=== PATIENT | female | born 1965 | race Caucasian/White ===

== ENCOUNTER 2017-07-17 18:22 | Inpatient (IN) | payer SELFPAY ==
[2017-07-17 18:44] VITALS: BP 149/83; PULSE 127; RESP 19; TEMP 37; O2SAT 99; BMI 37.5
--- NOTE | 2017-07-17 18:50 | ED.ABDPAIN ---
HPI - Abdominal Pain <Trena Lott PA-C - Last Filed: 07/17/17 22:22> General Chief Complaint: Abdominal Pain Stated Complaint: ACUTE SOMETHING WITH GALLBLADDER Time Seen by Provider: 07/17/17 18:48 Source: patient Mode of arrival: ambulatory Limitations: no limitations History of Present Illness HPI narrative: This generally healthy 51-year-old female was sent by [facility] secondary to gallstones. She states that she has had worsening right upper quadrant and flank pain for the last 5 days. She states that she thinks maybe it was present prior to that at a lower level. She states that she was initially diagnosed with/a kidney infection and started on Levaquin, however after not improving an ultrasound was done today and multiple stones and possible obstruction were shown as well. She states that she thinks there may have been some intestinal issue going on as well. She states that the right-sided pain is worse after trying to eat anything and she has had nausea and vomiting as well after trying to eat. She states that she has not had anything to eat or drink since 01/05 this morning mainly due to not being able to keep it down though she feels somewhat hungry. She states that she has felt clammy at times and has had some temperatures in the 99 range. She denies any urinary symptoms. She denies any pain elsewhere in the abdomen. She has not had blood in the stools, dyspnea, chest pain, pain or swelling in the extremities or other new complaints on systems review Related Data Allergies Allergy/AdvReac Type Severity Reaction Status Date / Time Penicillins Allergy Verified 07/17/17 21:49 Sulfa (Sulfonamide Allergy Verified 07/17/17 21:49 Antibiotics) Review of Systems <Trena Lott PA-C - Last Filed: 07/17/17 22:22> Review of Systems All systems reviewed & are unremarkable except as noted in HPI and below Exam <Trena Lott PA-C - Last Filed: 07/17/17 22:22> Narrative Exam Narrative: GENERAL APPEARANCE: Patient sitting comfortably, in no distress. HEENT: PERRL, EOMI, no scleral icterus NECK: Supple LUNGS: Clear to auscultation bilaterally. HEART: Rate and rhythm regular, normal S1 and S2, no S3 or S4. ABDOMEN: Soft, nondistended, bowel sounds present x 4 quadrants, no masses palpable, no hepatosplenomegaly. Right lower quadrant tenderness with +rebound, +Jon sign, moderate right CVAT. No tenderness elsewhere EXTREMITIES: No edema, no cyanosis DERMATOLOGIC: No jaundice or exanthem NEUROLOGIC: Alert and oriented with normal speech and coordination MDM - Abdominal Pain <Trena Lott PA-C - Last Filed: 07/17/17 22:22> Lab Data Attestation: I reviewed the patient's lab results. Result diagrams: 07/17/17 19:19 07/17/17 19:19 Lab Results 07/17/17 07/17/17 07/17/17 Range/Units 19:19 19:19 19:55 WBC 11.3 H (4.5-11.0) X10^3/uL RBC 4.96 (4.0-5.2) X10^6/uL Hgb 14.2 (12.0-16.0) g/dL Hct 41.2 (36-46) % MCV 83.1 (80-100) fL MCH 28.6 (26-34) PG MCHC 34.5 (30-36) % RDW 13.3 (11.6-14.8) % Plt Count 321 (150-400) X10^3/uL Neut % (Auto) 78.1 H (50-75) % Lymph % (Auto) 12.5 L (25-40) % [place] % (Auto) 8.4 (3-14) % Eos % (Auto) 0.5 L (2-4) % Baso % (Auto) 0.5 (0-2) % Neut # (Auto) 8800 H (8430-1970) /uL PT 14.0 H (10.1-12.7) SECONDS INR 1.3 (0.9-1.3) APTT 34 (26.4-36.2) SECONDS Sodium 139 (137-145) mmol/L Potassium 3.3 L (3.4-5.1) mmol/L Chloride 97.0 L (98-107) mmol/L Carbon Dioxide 27.0 (22-32) mmol/L BUN 12.0 (7-17) mg/dL Creatinine 0.70 (0.52-1.04) mg/dL Estimated GFR > 60.0 (>60) mL/min BUN/Creatinine Ratio 17.1 (6-22) Glucose 125 H (70-100) mg/dL Calcium 9.3 (8.4-10.2) mg/dL Total Bilirubin 0.7 (0.2-1.3) mg/dL AST 30 (14-36) IU/L ALT 68 H (9-52) IU/L Alkaline Phosphatase 123 (38-126) U/L Total Protein 8.1 (6.3-8.2) g/dL Albumin 4.3 (3.5-5.0) g/dL Globulin 3.8 (1.7-4.1) g/dL Albumin/Globulin Ratio 1.1 (1.0-2.8) Lipase 51 (23-300) U/L Urine RBC (0-5/HPF) Urine WBC (0-5/HPF) Ur Squamous Epith Cells Urine Bacteria (None) Urine Mucus (Negative) Ur Culture Indicated? Micro UA Comment 07/17/17 Range/Units 19:59 WBC (4.5-11.0) X10^3/uL RBC (4.0-5.2) X10^6/uL Hgb (12.0-16.0) g/dL Hct (36-46) % MCV (80-100) fL MCH (26-34) PG MCHC (30-36) % RDW (11.6-14.8) % Plt Count (150-400) X10^3/uL Neut % (Auto) (50-75) % Lymph % (Auto) (25-40) % [place] % (Auto) (3-14) % Eos % (Auto) (2-4) % Baso % (Auto) (0-2) % Neut # (Auto) (1168-9692) /uL PT (10.1-12.7) SECONDS INR (0.9-1.3) APTT (26.4-36.2) SECONDS Sodium (137-145) mmol/L Potassium (3.4-5.1) mmol/L Chloride (98-107) mmol/L Carbon Dioxide (22-32) mmol/L BUN (7-17) mg/dL Creatinine (0.52-1.04) mg/dL Estimated GFR (>60) mL/min BUN/Creatinine Ratio (6-22) Glucose (70-100) mg/dL Calcium (8.4-10.2) mg/dL Total Bilirubin (0.2-1.3) mg/dL AST (14-36) IU/L ALT (9-52) IU/L Alkaline Phosphatase (38-126) U/L Total Protein (6.3-8.2) g/dL Albumin (3.5-5.0) g/dL Globulin (1.7-4.1) g/dL Albumin/Globulin Ratio (1.0-2.8) Lipase (23-300) U/L Urine RBC 5-10/hpf H (0-5/HPF) Urine WBC 1-5/hpf (0-5/HPF) Ur Squamous Epith Cells 0-1 /hpf Urine Bacteria Few (2-10) H (None) Urine Mucus 2+ H (Negative) Ur Culture Indicated? Not Reportable Micro UA Comment Not Reportable Imaging Data CT scan - abdomen: Radiologist's impression: View Report History [address] [address] [address] Scan Report Signed Patient: KEKE JANG MR#: [id number] : 1965 Acct:[id number] Age/Sex: 51 / F Date of Service: 07/17/17 Loc: Accession Number: [id number] Procedure: CT abdomen pelvis w con Ordering Provider: Trena Lott P.A-C PROCEDURE: CT ABDOMEN PELVIS W CON INDICATIONS: 51 year-old female with gallstones and right upper quadrant abdominal pain. TECHNIQUE: After the administration of oral and intravenous contrast, 5 mm thick sections acquired from the diaphragms to the symphysis. 5 mm thick coronal and sagittal reformats were performed. For radiation dose reduction, the following was used: automated exposure control, adjustment of mA and/or kV according to patient size. COMPARISON: None. FINDINGS: Image quality: Excellent. ABDOMEN: Lung bases: Lung bases are clear, except for patchy bibasilar atelectasis. Heart size is normal. Solid organs: Liver is normal in size and enhancement, with mild intrahepatic biliary ductal dilation. Gallbladder contains several dependent noncalcified gallstones, and is distended up to 14.5 x 4.5 cm, along with diffuse wall thickening and mild pericholecystic inflammatory fat stranding. Biliary system is non-dilated. Pancreas enhances normally. Spleen is normal in size, with 2.2 cm lateral subcapsular cyst. No adrenal nodules. Kidneys are normal in size and enhancement, without hydronephrosis. Peritoneum and bowel: Stomach, small bowel, and colon loops are normal in caliber and wall thickness. The appendix appears normal. No free fluid or air. Nodes and vessels: No retroperitoneal or mesenteric adenopathy. Aorta and inferior vena cava are normal in caliber. Miscellaneous: No ventral hernias. PELVIS: Genitourinary: Bladder wall thickness is normal. Uterus and left ovary appears surgically absent. The right ovary appears normal in size on axial image 75. Miscellaneous: No inguinal hernias or adenopathy. Bilateral inguinal surgical clips are present. Bones: No suspicious bony lesions. No vertebral body compression fractures. There is mild lumbar spine levoscoliosis, and lower thoracic spine dextroscoliosis. IMPRESSION: 1. Constellation of findings indicate acute cholecystitis, including gallbladder distention from outlet obstruction, diffuse gallbladder wall thickening, several dependent noncalcified gallstones, and pericholecystic inflammatory fat stranding. As such, confirmatory abdominal ultrasound is not needed. Mild intrahepatic biliary ductal dilation may suggest concomitant Mirizzi syndrome from extrinsic compression of the proximal extrahepatic biliary duct. 2. Incidental 2.2 cm lateral splenic subcapsular cyst. Dictated by: Will Mendoza M.D. on 07/17/2017 at 20:39 Approved by: Will Mendoza M.D. on 07/17/2017 at 20:49 <Rubens Sanchez DO - Last Filed: 07/17/17 22:48> Lab Data Lab Results 07/17/17 07/17/17 07/17/17 Range/Units 19:19 19:19 19:55 WBC 11.3 H (4.5-11.0) X10^3/uL RBC 4.96 (4.0-5.2) X10^6/uL Hgb 14.2 (12.0-16.0) g/dL Hct 41.2 (36-46) % MCV 83.1 (80-100) fL MCH 28.6 (26-34) PG MCHC 34.5 (30-36) % RDW 13.3 (11.6-14.8) % Plt Count 321 (150-400) X10^3/uL Neut % (Auto) 78.1 H (50-75) % Lymph % (Auto) 12.5 L (25-40) % [place] % (Auto) 8.4 (3-14) % Eos % (Auto) 0.5 L (2-4) % Baso % (Auto) 0.5 (0-2) % Neut # (Auto) 8800 H (2267-1470) /uL PT 14.0 H (10.1-12.7) SECONDS INR 1.3 (0.9-1.3) APTT 34 (26.4-36.2) SECONDS Sodium 139 (137-145) mmol/L Potassium 3.3 L (3.4-5.1) mmol/L Chloride 97.0 L (98-107) mmol/L Carbon Dioxide 27.0 (22-32) mmol/L BUN 12.0 (7-17) mg/dL Creatinine 0.70 (0.52-1.04) mg/dL Estimated GFR > 60.0 (>60) mL/min BUN/Creatinine Ratio 17.1 (6-22) Glucose 125 H (70-100) mg/dL Calcium 9.3 (8.4-10.2) mg/dL Total Bilirubin 0.7 (0.2-1.3) mg/dL AST 30 (14-36) IU/L ALT 68 H (9-52) IU/L Alkaline Phosphatase 123 (38-126) U/L Total Protein 8.1 (6.3-8.2) g/dL Albumin 4.3 (3.5-5.0) g/dL Globulin 3.8 (1.7-4.1) g/dL Albumin/Globulin Ratio 1.1 (1.0-2.8) Lipase 51 (23-300) U/L Urine RBC (0-5/HPF) Urine WBC (0-5/HPF) Ur Squamous Epith Cells Urine Bacteria (None) Urine Mucus (Negative) Ur Culture Indicated? Micro UA Comment 07/17/17 Range/Units 19:59 WBC (4.5-11.0) X10^3/uL RBC (4.0-5.2) X10^6/uL Hgb (12.0-16.0) g/dL Hct (36-46) % MCV (80-100) fL MCH (26-34) PG MCHC (30-36) % RDW (11.6-14.8) % Plt Count (150-400) X10^3/uL Neut % (Auto) (50-75) % Lymph % (Auto) (25-40) % [place] % (Auto) (3-14) % Eos % (Auto) (2-4) % Baso % (Auto) (0-2) % Neut # (Auto) (2175-9607) /uL PT (10.1-12.7) SECONDS INR (0.9-1.3) APTT (26.4-36.2) SECONDS Sodium (137-145) mmol/L Potassium (3.4-5.1) mmol/L Chloride (98-107) mmol/L Carbon Dioxide (22-32) mmol/L BUN (7-17) mg/dL Creatinine (0.52-1.04) mg/dL Estimated GFR (>60) mL/min BUN/Creatinine Ratio (6-22) Glucose (70-100) mg/dL Calcium (8.4-10.2) mg/dL Total Bilirubin (0.2-1.3) mg/dL AST (14-36) IU/L ALT (9-52) IU/L Alkaline Phosphatase (38-126) U/L Total Protein (6.3-8.2) g/dL Albumin (3.5-5.0) g/dL Globulin (1.7-4.1) g/dL Albumin/Globulin Ratio (1.0-2.8) Lipase (23-300) U/L Urine RBC 5-10/hpf H (0-5/HPF) Urine WBC 1-5/hpf (0-5/HPF) Ur Squamous Epith Cells 0-1 /hpf Urine Bacteria Few (2-10) H (None) Urine Mucus 2+ H (Negative) Ur Culture Indicated? Not Reportable Micro UA Comment Not Reportable Course <Trena Lott PA-C - Last Filed: 07/17/17 22:22> Hospital Course: Patient reported that ultrasound films had been sent here from [facility], however our radiology department has no record of these being uploaded or received. In discussion and evaluation I think clinical condition warrants CT scan and this was ordered. She has not had lab work done today Orders Ordered: ED Orders 07/17/17 19:11 CT abdomen pelvis w con Stat 07/17/17 19:19 Complete Blood Count AUTO DIFF Stat Comprehensive Metabolic Panel Stat Lipase Stat 07/17/17 19:55 Partial Thromboplastin Time Stat Prothrombin Time INR Stat 07/17/17 19:59 Urine Microscopic Stat Discontinued Medications Hydromorphone HCl (Dilaudid) 1 mg IV NOW ONE Stop: 07/17/17 19:05 Last Admin: 07/17/17 19:27 Dose: 1 mg Hydromorphone HCl (Dilaudid) 0.5 mg IV NOW ONE Stop: 07/17/17 22:33 Last Admin: 07/17/17 22:44 Dose: 0.5 mg Hydromorphone HCl (Dilaudid) 0.5 mg IV NOW ONE Stop: 07/17/17 22:34 Last Admin: 07/17/17 22:44 Dose: 0.5 mg Sodium Chloride (Normal Saline 0.9%) 500 mls @ 1,000 mls/hr IV BOLUS ONE Stop: 07/17/17 19:21 Last Infusion: 07/17/17 20:20 Dose: 1,000 mls/hr Admin: 07/17/17 19:29 Dose: 1,000 mls/hr Sodium Chloride (Normal Saline 0.9%) 500 mls @ 1,000 mls/hr IV BOLUS ONE Stop: 07/17/17 21:20 Last Admin: 07/17/17 21:40 Dose: 1,000 mls/hr Ketorolac Tromethamine (Toradol) 30 mg IV NOW ONE Stop: 07/17/17 19:05 Last Admin: 07/17/17 19:27 Dose: 30 mg Ondansetron HCl (Zofran) 4 mg IV NOW ONE Stop: 07/17/17 19:05 Last Admin: 07/17/17 19:28 Dose: 4 mg Consultations Consultation #1: [id number]: I spoke with Dr. Lehman, construction secretary for surgery, and reviewed lab and imaging studies. He will see patient here in the ED. Patient states pain is improved, tolerable, declines additional pain medication, and denies nausea currently. [id number]: Dr. Lehman is here to evaluate patient and is discussing plan for magda with her Last Vital Signs Temp 98.6 F 05/11/18 18:44 Pulse 110 H 07/17/17 21:40 Resp 19 07/17/17 21:40 BP 126/75 H 07/17/17 21:40 Pulse Ox 98 07/17/17 21:40 <Rubens DO Daniel - Last Filed: 07/17/17 22:48> Orders Ordered: ED Orders 07/17/17 19:11 CT abdomen pelvis w con Stat 07/17/17 19:19 Complete Blood Count AUTO DIFF Stat Comprehensive Metabolic Panel Stat Lipase Stat 07/17/17 19:55 Partial Thromboplastin Time Stat Prothrombin Time INR Stat 07/17/17 19:59 Urine Microscopic Stat Discontinued Medications Hydromorphone HCl (Dilaudid) 1 mg IV NOW ONE Stop: 07/17/17 19:05 Last Admin: 07/17/17 19:27 Dose: 1 mg Hydromorphone HCl (Dilaudid) 0.5 mg IV NOW ONE Stop: 07/17/17 22:33 Last Admin: 07/17/17 22:44 Dose: 0.5 mg Hydromorphone HCl (Dilaudid) 0.5 mg IV NOW ONE Stop: 07/17/17 22:34 Last Admin: 07/17/17 22:44 Dose: 0.5 mg Sodium Chloride (Normal Saline 0.9%) 500 mls @ 1,000 mls/hr IV BOLUS ONE Stop: 07/17/17 19:21 Last Infusion: 07/17/17 20:20 Dose: 1,000 mls/hr Admin: 07/17/17 19:29 Dose: 1,000 mls/hr Sodium Chloride (Normal Saline 0.9%) 500 mls @ 1,000 mls/hr IV BOLUS ONE Stop: 07/17/17 21:20 Last Admin: 07/17/17 21:40 Dose: 1,000 mls/hr Ketorolac Tromethamine (Toradol) 30 mg IV NOW ONE Stop: 07/17/17 19:05 Last Admin: 07/17/17 19:27 Dose: 30 mg Ondansetron HCl (Zofran) 4 mg IV NOW ONE Stop: 07/17/17 19:05 Last Admin: 07/17/17 19:28 Dose: 4 mg Last Vital Signs Temp 98.6 F 07/17/17 18:44 Pulse 110 H 07/17/17 21:40 Resp 19 07/17/17 21:40 BP 126/75 H 07/17/17 21:40 Pulse Ox 98 07/17/17 21:40 Discharge Plan Departure Patient Disposition: Admitted as Observation Clinical Impression: Cholecystitis <Rubens Sanchez DO - Last Filed: 07/17/17 22:48> Cosign ED Attending Denny Attestation: I was available for consultation during this patient's emergency department encounter
--- NOTE | 2017-07-17 19:11 | DI.CT.S_ITS ---
PROCEDURE: CT ABDOMEN PELVIS W CON INDICATIONS: 51 year-old female with gallstones and right upper quadrant abdominal pain. TECHNIQUE: After the administration of oral and intravenous contrast, 5 mm thick sections acquired from the diaphragms to the symphysis. 5 mm thick coronal and sagittal reformats were performed. For radiation dose reduction, the following was used: automated exposure control, adjustment of mA and/or kV according to patient size. COMPARISON: None. FINDINGS: Image quality: Excellent. ABDOMEN: Lung bases: Lung bases are clear, except for patchy bibasilar atelectasis. Heart size is normal. Solid organs: Liver is normal in size and enhancement, with mild intrahepatic biliary ductal dilation. Gallbladder contains several dependent noncalcified gallstones, and is distended up to 14.5 x 4.5 cm, along with diffuse wall thickening and mild pericholecystic inflammatory fat stranding. Biliary system is non-dilated. Pancreas enhances normally. Spleen is normal in size, with 2.2 cm lateral subcapsular cyst. No adrenal nodules. Kidneys are normal in size and enhancement, without hydronephrosis. Peritoneum and bowel: Stomach, small bowel, and colon loops are normal in caliber and wall thickness. The appendix appears normal. No free fluid or air. Nodes and vessels: No retroperitoneal or mesenteric adenopathy. Aorta and inferior vena cava are normal in caliber. Miscellaneous: No ventral hernias. PELVIS: Genitourinary: Bladder wall thickness is normal. Uterus and left ovary appears surgically absent. The right ovary appears normal in size on axial image 75. Miscellaneous: No inguinal hernias or adenopathy. Bilateral inguinal surgical clips are present. Bones: No suspicious bony lesions. No vertebral body compression fractures. There is mild lumbar spine levoscoliosis, and lower thoracic spine dextroscoliosis. IMPRESSION: 1. Constellation of findings indicate acute cholecystitis, including gallbladder distention from outlet obstruction, diffuse gallbladder wall thickening, several dependent noncalcified gallstones, and pericholecystic inflammatory fat stranding. As such, confirmatory abdominal ultrasound is not needed. Mild intrahepatic biliary ductal dilation may suggest concomitant Mirizzi syndrome from extrinsic compression of the proximal extrahepatic biliary duct. 2. Incidental 2.2 cm lateral splenic subcapsular cyst. Dictated by: Will Mendoza M.D. on 07/17/2017 at 20:39 Approved by: Will Mendoza M.D. on 07/17/2017 at 20:49
[2017-07-17 19:23] LABS: Add Manual Diff / Slide Review NO; Basophils Percent Auto 0.5 % (0-2); Eosinophils Percent Auto 0.5 % (2-4); Hematocrit 41.2 % (36-46); Hemoglobin 14.2 g/dL (12.0-16.0); Lymphocytes Percent Auto 12.5 % (25-40); Mean Corpuscular HGB Conc 34.5 % (30-36); Mean Corpuscular Hemoglobin 28.6 PG (26-34); Mean Corpuscular Volume 83.1 fL (80-100); Monocytes Percent Auto 8.4 % (3-14); Neutrophils Absolute Auto 8800 /uL (3000-5900); Neutrophils Percent Auto 78.1 % (50-75); Platelet Count 321 X10^3/uL (150-400); Red Blood Cell Count 4.96 X10^6/uL (4.0-5.2); Red Cell Distribution Width 13.3 % (11.6-14.8); White Blood Cell Count 11.3 X10^3/uL (4.5-11.0)
[2017-07-17] MEDS: HYDROMORPHONE 1 MG INJ IV (19:27)
[2017-07-17] MEDS: KETOROLAC 60 MG/2 ML VIAL 30 MG IV (19:27)
[2017-07-17] MEDS: ONDANSETRON 4 MG/2 ML INJ IV (19:28)
[2017-07-17] MEDS: SODIUM CHLORIDE 0.9% 500 ML 1000 ML IV ×2 (19:29→21:40)
--- NOTE | 2017-07-17 19:29 | ED_ITS ---
HPI - Abdominal Pain <Trena Lott PA-C - Last Filed: 07/17/17 22:22> General Chief Complaint: Abdominal Pain Stated Complaint: ACUTE SOMETHING WITH GALLBLADDER Time Seen by Provider: 07/17/17 18:48 Source: patient Mode of arrival: ambulatory Limitations: no limitations History of Present Illness HPI narrative: This generally healthy 51-year-old female was sent by [facility] secondary to gallstones. She states that she has had worsening right upper quadrant and flank pain for the last 5 days. She states that she thinks maybe it was present prior to that at a lower level. She states that she was initially diagnosed with/a kidney infection and started on Levaquin, however after not improving an ultrasound was done today and multiple stones and possible obstruction were shown as well. She states that she thinks there may have been some intestinal issue going on as well. She states that the right-sided pain is worse after trying to eat anything and she has had nausea and vomiting as well after trying to eat. She states that she has not had anything to eat or drink since 01/05 this morning mainly due to not being able to keep it down though she feels somewhat hungry. She states that she has felt clammy at times and has had some temperatures in the 99 range. She denies any urinary symptoms. She denies any pain elsewhere in the abdomen. She has not had blood in the stools, dyspnea, chest pain, pain or swelling in the extremities or other new complaints on systems review Related Data Allergies Allergy/AdvReac Type Severity Reaction Status Date / Time Penicillins Allergy Verified 07/17/17 21:49 Sulfa (Sulfonamide Allergy Verified 07/17/17 21:49 Antibiotics) Review of Systems <Trena Lott PA-C - Last Filed: 07/17/17 22:22> Review of Systems All systems reviewed & are unremarkable except as noted in HPI and below Exam <Trena Lott PA-C - Last Filed: 07/17/17 22:22> Narrative Exam Narrative: GENERAL APPEARANCE: Patient sitting comfortably, in no distress. HEENT: PERRL, EOMI, no scleral icterus NECK: Supple LUNGS: Clear to auscultation bilaterally. HEART: Rate and rhythm regular, normal S1 and S2, no S3 or S4. ABDOMEN: Soft, nondistended, bowel sounds present x 4 quadrants, no masses palpable, no hepatosplenomegaly. Right lower quadrant tenderness with +rebound , +Jon sign, moderate right CVAT. No tenderness elsewhere EXTREMITIES: No edema, no cyanosis DERMATOLOGIC: No jaundice or exanthem NEUROLOGIC: Alert and oriented with normal speech and coordination MDM - Abdominal Pain <Trena Lott PA-C - Last Filed: 07/17/17 22:22> Lab Data Attestation: I reviewed the patient's lab results. Result diagrams: 07/17/17 19:19 07/17/17 19:19 Lab Results 07/17/17 07/17/17 07/17/17 Range/Units 19:19 19:19 19:55 WBC 11.3 H (4.5-11.0) X10^3/uL RBC 4.96 (4.0-5.2) X10^6/uL Hgb 14.2 (12.0-16.0) g/dL Hct 41.2 (36-46) % MCV 83.1 (80-100) fL MCH 28.6 (26-34) PG MCHC 34.5 (30-36) % RDW 13.3 (11.6-14.8) % Plt Count 321 (150-400) X10^3/uL Neut % (Auto) 78.1 H (50-75) % Lymph % (Auto) 12.5 L (25-40) % [place] % (Auto) 8.4 (3-14) % Eos % (Auto) 0.5 L (2-4) % Baso % (Auto) 0.5 (0-2) % Neut # (Auto) 8800 H (8721-7354) /uL PT 14.0 H (10.1-12.7) SECONDS INR 1.3 (0.9-1.3) APTT 34 (26.4-36.2) SECONDS Sodium 139 (137-145) mmol/L Potassium 3.3 L (3.4-5.1) mmol/L Chloride 97.0 L (98-107) mmol/L Carbon Dioxide 27.0 (22-32) mmol/L BUN 12.0 (7-17) mg/dL Creatinine 0.70 (0.52-1.04) mg/dL Estimated GFR > 60.0 (>60) mL/min BUN/Creatinine Ratio 17.1 (6-22) Glucose 125 H (70-100) mg/dL Calcium 9.3 (8.4-10.2) mg/dL Total Bilirubin 0.7 (0.2-1.3) mg/dL AST 30 (14-36) IU/L ALT 68 H (9-52) IU/L Alkaline Phosphatase 123 (38-126) U/L Total Protein 8.1 (6.3-8.2) g/dL Albumin 4.3 (3.5-5.0) g/dL Globulin 3.8 (1.7-4.1) g/dL Albumin/Globulin Ratio 1.1 (1.0-2.8) Lipase 51 (23-300) U/L Urine RBC (0-5/HPF) Urine WBC (0-5/HPF) Ur Squamous Epith Cells Urine Bacteria (None) Urine Mucus (Negative) Ur Culture Indicated? Micro UA Comment 07/17/17 Range/Units 19:59 WBC (4.5-11.0) X10^3/uL RBC (4.0-5.2) X10^6/uL Hgb (12.0-16.0) g/dL Hct (36-46) % MCV (80-100) fL MCH (26-34) PG MCHC (30-36) % RDW (11.6-14.8) % Plt Count (150-400) X10^3/uL Neut % (Auto) (50-75) % Lymph % (Auto) (25-40) % [place] % (Auto) (3-14) % Eos % (Auto) (2-4) % Baso % (Auto) (0-2) % Neut # (Auto) (4900-0353) /uL PT (10.1-12.7) SECONDS INR (0.9-1.3) APTT (26.4-36.2) SECONDS Sodium (137-145) mmol/L Potassium (3.4-5.1) mmol/L Chloride (98-107) mmol/L Carbon Dioxide (22-32) mmol/L BUN (7-17) mg/dL Creatinine (0.52-1.04) mg/dL Estimated GFR (>60) mL/min BUN/Creatinine Ratio (6-22) Glucose (70-100) mg/dL Calcium (8.4-10.2) mg/dL Total Bilirubin (0.2-1.3) mg/dL AST (14-36) IU/L ALT (9-52) IU/L Alkaline Phosphatase (38-126) U/L Total Protein (6.3-8.2) g/dL Albumin (3.5-5.0) g/dL Globulin (1.7-4.1) g/dL Albumin/Globulin Ratio (1.0-2.8) Lipase (23-300) U/L Urine RBC 5-10/hpf H (0-5/HPF) Urine WBC 1-5/hpf (0-5/HPF) Ur Squamous Epith Cells 0-1 /hpf Urine Bacteria Few (2-10) H (None) Urine Mucus 2+ H (Negative) Ur Culture Indicated? Not Reportable Micro UA Comment Not Reportable Imaging Data CT scan - abdomen: Radiologist's impression: View Report History [address] [address] [address] Scan Report Signed Patient: KEKE JANG MR#: [id number] : 1965 Acct:[id number] Age/Sex: 51 / F Date of Service: 07/17/17 Loc: Accession Number: [id number] Procedure: CT abdomen pelvis w con Ordering Provider: Trena Lott P.A-C PROCEDURE: CT ABDOMEN PELVIS W CON INDICATIONS: 51 year-old female with gallstones and right upper quadrant abdominal pain. TECHNIQUE: After the administration of oral and intravenous contrast, 5 mm thick sections acquired from the diaphragms to the symphysis. 5 mm thick coronal and sagittal reformats were performed. For radiation dose reduction, the following was used: automated exposure control, adjustment of mA and/or kV according to patient size. COMPARISON: None. FINDINGS: Image quality: Excellent. ABDOMEN: Lung bases: Lung bases are clear, except for patchy bibasilar atelectasis. Heart size is normal. Solid organs: Liver is normal in size and enhancement, with mild intrahepatic biliary ductal dilation. Gallbladder contains several dependent noncalcified gallstones , and is distended up to 14.5 x 4.5 cm, along with diffuse wall thickening and mild pericholecystic inflammatory fat stranding. Biliary system is non-dilated. Pancreas enhances normally. Spleen is normal in size, with 2.2 cm lateral subcapsular cyst. No adrenal nodules. Kidneys are normal in size and enhancement, without hydronephrosis. Peritoneum and bowel: Stomach, small bowel, and colon loops are normal in caliber and wall thickness. The appendix appears normal. No free fluid or air. Nodes and vessels: No retroperitoneal or mesenteric adenopathy. Aorta and inferior vena cava are normal in caliber. Miscellaneous: No ventral hernias. PELVIS: Genitourinary: Bladder wall thickness is normal. Uterus and left ovary appears surgically absent. The right ovary appears normal in size on axial image 75. Miscellaneous: No inguinal hernias or adenopathy. Bilateral inguinal surgical clips are present. Bones: No suspicious bony lesions. No vertebral body compression fractures. There is mild lumbar spine levoscoliosis, and lower thoracic spine dextroscoliosis. IMPRESSION: 1. Constellation of findings indicate acute cholecystitis, including gallbladder distention from outlet obstruction, diffuse gallbladder wall thickening, several dependent noncalcified gallstones, and pericholecystic inflammatory fat stranding. As such, confirmatory abdominal ultrasound is not needed. Mild intrahepatic biliary ductal dilation may suggest concomitant Mirizzi syndrome from extrinsic compression of the proximal extrahepatic biliary duct. 2. Incidental 2.2 cm lateral splenic subcapsular cyst. Dictated by: Will Mendoza M.D. on 07/17/2017 at 20:39 Approved by: Will Mendoza M.D. on 07/17/2017 at 20:49 <Rubens Sanchez DO - Last Filed: 07/17/17 22:48> Lab Data Lab Results 07/17/17 07/17/17 07/17/17 Range/Units 19:19 19:19 19:55 WBC 11.3 H (4.5-11.0) X10^3/uL RBC 4.96 (4.0-5.2) X10^6/uL Hgb 14.2 (12.0-16.0) g/dL Hct 41.2 (36-46) % MCV 83.1 (80-100) fL MCH 28.6 (26-34) PG MCHC 34.5 (30-36) % RDW 13.3 (11.6-14.8) % Plt Count 321 (150-400) X10^3/uL Neut % (Auto) 78.1 H (50-75) % Lymph % (Auto) 12.5 L (25-40) % [place] % (Auto) 8.4 (3-14) % Eos % (Auto) 0.5 L (2-4) % Baso % (Auto) 0.5 (0-2) % Neut # (Auto) 8800 H (5211-0710) /uL PT 14.0 H (10.1-12.7) SECONDS INR 1.3 (0.9-1.3) APTT 34 (26.4-36.2) SECONDS Sodium 139 (137-145) mmol/L Potassium 3.3 L (3.4-5.1) mmol/L Chloride 97.0 L (98-107) mmol/L Carbon Dioxide 27.0 (22-32) mmol/L BUN 12.0 (7-17) mg/dL Creatinine 0.70 (0.52-1.04) mg/dL Estimated GFR > 60.0 (>60) mL/min BUN/Creatinine Ratio 17.1 (6-22) Glucose 125 H (70-100) mg/dL Calcium 9.3 (8.4-10.2) mg/dL Total Bilirubin 0.7 (0.2-1.3) mg/dL AST 30 (14-36) IU/L ALT 68 H (9-52) IU/L Alkaline Phosphatase 123 (38-126) U/L Total Protein 8.1 (6.3-8.2) g/dL Albumin 4.3 (3.5-5.0) g/dL Globulin 3.8 (1.7-4.1) g/dL Albumin/Globulin Ratio 1.1 (1.0-2.8) Lipase 51 (23-300) U/L Urine RBC (0-5/HPF) Urine WBC (0-5/HPF) Ur Squamous Epith Cells Urine Bacteria (None) Urine Mucus (Negative) Ur Culture Indicated? Micro UA Comment 07/17/17 Range/Units 19:59 WBC (4.5-11.0) X10^3/uL RBC (4.0-5.2) X10^6/uL Hgb (12.0-16.0) g/dL Hct (36-46) % MCV (80-100) fL MCH (26-34) PG MCHC (30-36) % RDW (11.6-14.8) % Plt Count (150-400) X10^3/uL Neut % (Auto) (50-75) % Lymph % (Auto) (25-40) % [place] % (Auto) (3-14) % Eos % (Auto) (2-4) % Baso % (Auto) (0-2) % Neut # (Auto) (5860-2447) /uL PT (10.1-12.7) SECONDS INR (0.9-1.3) APTT (26.4-36.2) SECONDS Sodium (137-145) mmol/L Potassium (3.4-5.1) mmol/L Chloride (98-107) mmol/L Carbon Dioxide (22-32) mmol/L BUN (7-17) mg/dL Creatinine (0.52-1.04) mg/dL Estimated GFR (>60) mL/min BUN/Creatinine Ratio (6-22) Glucose (70-100) mg/dL Calcium (8.4-10.2) mg/dL Total Bilirubin (0.2-1.3) mg/dL AST (14-36) IU/L ALT (9-52) IU/L Alkaline Phosphatase (38-126) U/L Total Protein (6.3-8.2) g/dL Albumin (3.5-5.0) g/dL Globulin (1.7-4.1) g/dL Albumin/Globulin Ratio (1.0-2.8) Lipase (23-300) U/L Urine RBC 5-10/hpf H (0-5/HPF) Urine WBC 1-5/hpf (0-5/HPF) Ur Squamous Epith Cells 0-1 /hpf Urine Bacteria Few (2-10) H (None) Urine Mucus 2+ H (Negative) Ur Culture Indicated? Not Reportable Micro UA Comment Not Reportable Course <Trena Lott PA-C - Last Filed: 07/17/17 22:22> Hospital Course: Patient reported that ultrasound films had been sent here from [facility], however our radiology department has no record of these being uploaded or received. In discussion and evaluation I think clinical condition warrants CT scan and this was ordered. She has not had lab work done today Orders Ordered: ED Orders 07/17/17 19:11 CT abdomen pelvis w con Stat 07/17/17 19:19 Complete Blood Count AUTO DIFF Stat Comprehensive Metabolic Panel Stat Lipase Stat 07/17/17 19:55 Partial Thromboplastin Time Stat Prothrombin Time INR Stat 07/17/17 19:59 Urine Microscopic Stat Discontinued Medications Hydromorphone HCl (Dilaudid) 1 mg IV NOW ONE Stop: 07/17/17 19:05 Last Admin: 07/17/17 19:27 Dose: 1 mg Hydromorphone HCl (Dilaudid) 0.5 mg IV NOW ONE Stop: 07/17/17 22:33 Last Admin: 07/17/17 22:44 Dose: 0.5 mg Hydromorphone HCl (Dilaudid) 0.5 mg IV NOW ONE Stop: 07/17/17 22:34 Last Admin: 07/17/17 22:44 Dose: 0.5 mg Sodium Chloride (Normal Saline 0.9%) 500 mls @ 1,000 mls/hr IV BOLUS ONE Stop: 07/17/17 19:21 Last Infusion: 07/17/17 20:20 Dose: 1,000 mls/hr Admin: 07/17/17 19:29 Dose: 1,000 mls/hr Sodium Chloride (Normal Saline 0.9%) 500 mls @ 1,000 mls/hr IV BOLUS ONE Stop: 07/17/17 21:20 Last Admin: 07/17/17 21:40 Dose: 1,000 mls/hr Ketorolac Tromethamine (Toradol) 30 mg IV NOW ONE Stop: 07/17/17 19:05 Last Admin: 07/17/17 19:27 Dose: 30 mg Ondansetron HCl (Zofran) 4 mg IV NOW ONE Stop: 07/17/17 19:05 Last Admin: 07/17/17 19:28 Dose: 4 mg Consultations Consultation #1: [id number]: I spoke with Dr. Lehman, translation director for surgery, and reviewed lab and imaging studies. He will see patient here in the ED. Patient states pain is improved, tolerable, declines additional pain medication, and denies nausea currently. [id number]: Dr. Lehman is here to evaluate patient and is discussing plan for magda with her Last Vital Signs Temp 98.6 F 05/11/18 18:44 Pulse 110 H 07/17/17 21:40 Resp 19 07/17/17 21:40 BP 126/75 H 07/17/17 21:40 Pulse Ox 98 07/17/17 21:40 <Rubens DO Daniel - Last Filed: 07/17/17 22:48> Orders Ordered: ED Orders 07/17/17 19:11 CT abdomen pelvis w con Stat 07/17/17 19:19 Complete Blood Count AUTO DIFF Stat Comprehensive Metabolic Panel Stat Lipase Stat 07/17/17 19:55 Partial Thromboplastin Time Stat Prothrombin Time INR Stat 07/17/17 19:59 Urine Microscopic Stat Discontinued Medications Hydromorphone HCl (Dilaudid) 1 mg IV NOW ONE Stop: 07/17/17 19:05 Last Admin: 07/17/17 19:27 Dose: 1 mg Hydromorphone HCl (Dilaudid) 0.5 mg IV NOW ONE Stop: 07/17/17 22:33 Last Admin: 07/17/17 22:44 Dose: 0.5 mg Hydromorphone HCl (Dilaudid) 0.5 mg IV NOW ONE Stop: 07/17/17 22:34 Last Admin: 07/17/17 22:44 Dose: 0.5 mg Sodium Chloride (Normal Saline 0.9%) 500 mls @ 1,000 mls/hr IV BOLUS ONE Stop: 07/17/17 19:21 Last Infusion: 07/17/17 20:20 Dose: 1,000 mls/hr Admin: 07/17/17 19:29 Dose: 1,000 mls/hr Sodium Chloride (Normal Saline 0.9%) 500 mls @ 1,000 mls/hr IV BOLUS ONE Stop: 07/17/17 21:20 Last Admin: 07/17/17 21:40 Dose: 1,000 mls/hr Ketorolac Tromethamine (Toradol) 30 mg IV NOW ONE Stop: 07/17/17 19:05 Last Admin: 07/17/17 19:27 Dose: 30 mg Ondansetron HCl (Zofran) 4 mg IV NOW ONE Stop: 07/17/17 19:05 Last Admin: 07/17/17 19:28 Dose: 4 mg Last Vital Signs Temp 98.6 F 07/17/17 18:44 Pulse 110 H 07/17/17 21:40 Resp 19 07/17/17 21:40 BP 126/75 H 07/17/17 21:40 Pulse Ox 98 07/17/17 21:40 Discharge Plan Departure Patient Disposition: Admitted as Observation Clinical Impression: Cholecystitis <Rubens Sanchez DO - Last Filed: 07/17/17 22:48> Cosign ED Attending Denny Attestation: I was available for consultation during this patient's emergency department encounter
[2017-07-17 19:42] LABS: Alanine Aminotransferase 68 IU/L (9-52); Albumin 4.3 g/dL (3.5-5.0); Albumin Globulin Ratio 1.1 (1.0-2.8); Alkaline Phosphatase 123 U/L (38-126); Aspartate Aminotransferase 30 IU/L (14-36); BUN Creatinine Ratio 17.1 (6-22); Bilirubin Total 0.7 mg/dL (0.2-1.3); Calcium 9.3 mg/dL (8.4-10.2); Estimated Glomerular Filt Rate > 60.0 mL/min (>60); Globulin 3.8 g/dL (1.7-4.1); Glucose 125 mg/dL (70-100); HEMOLYSIS < 15 (0-50); Lipase 51 U/L (23-300); Potassium 3.3 mmol/L (3.4-5.1); Sodium 139 mmol/L (137-145); Total Protein 8.1 g/dL (6.3-8.2)
[2017-07-17 19:52] VITALS: BP 136/88; RESP 17; O2SAT 99
[2017-07-17 20:19] LABS: RBC Urine 5-10/HPF (0-5/HPF); WBC Urine 1-5/HPF (0-5/HPF)
[2017-07-17 20:20] LABS: Bacteria Urine Few (2-10); Mucus Urine 2+ (Negative); Squamous Epithelial Cell Urine 0-1 /HPF
[2017-07-17 20:34] LABS: INR 1.3 (0.9-1.3)
[2017-07-17 20:37] LABS: PTT Partial Thromboplastin Tim 34 SECONDS (26.4-36.2)
[2017-07-17 21:40] VITALS: BP 126/75; PULSE 110; RESP 19; O2SAT 98
--- NOTE | 2017-07-17 22:41 | P.HP_ITS ---
History of Present Illness Chief complaint: ACUTE SOMETHING WITH GALLBLADDER Narrative: KEKE JANG is a 51 year old female For the last several months the patient has been having intermittent abdominal pain with nausea. This week she has had continuous pain several days ago she had an episode of vomiting. She has been nauseated all week. Early in the week she felt like her kidneys were on fire because of pain across her back. That seems to have gone away. The pain across her back is what prompted her to see her doctor and she has been on Levaquin this week. Fatty foods seem to make this pain worse. [facility] Medical History H/O: hysterectomy (Resolved) Postoperative acute deep vein thrombosis (DVT) of lower extremity (Resolved) Surgical History Ectopic (Resolved) H/O: section (Resolved) History of varicose vein stripping (Resolved) Family History Other Cancer Social History Smoking Status: Never smoker Meds Allergies Allergy/AdvReac Type Severity Reaction Status Date / Time Penicillins Allergy Verified 07/17/17 21:49 Sulfa (Sulfonamide Allergy Verified 07/17/17 21:49 Antibiotics) Review of Systems Review of Systems All systems reviewed & are unremarkable except as noted in HPI and below Gastrointestinal Comments: See HPI Exam Vital Signs (past 8 hours): Vital Signs - 8 hr 3 07/17/17 18:44 07/17/17 19:52 07/17/17 21:40 Temperature 98.6 F Pulse Rate 127 H 110 H Respiratory Rate 19 17 19 Blood Pressure 149/83 H Blood Pressure [Right Arm] 136/88 H 126/75 H Pulse Oximetry 99 99 98 Pulse Oximetry 98 Oxygen Delivery Method Room Air Narrative Exam Narrative: Operative in no apparent distress somewhat obese. Eyes are nonicteric. Pupils equal round small reactive to light. Conjunctivae are pink. Ears without lesion. Nasal septum is midline. No nasal polyps. Oral mucosa is dry. No open lesions. Teeth are intact. No splits in the lips. Her neck is supple. I feel no nodes in the neck or supraclavicular areas. Trachea is midline and mobile. Thyroid is not enlarged. There are no masses in neck or thyroid. Lungs are clear to auscultation without rales or rhonchi. The with the percussion. Heart regular rate and rhythm without murmur or gallop. No bruit in the neck. Her abdomen is protuberant and soft. I can't feel any hernias. Patient has localized tenderness lateral right upper quadrant. Difficult to feel any masses. She has voluntary guarding in that palpation of that 1 spot. The remainder of the abdomen however is soft without guarding. She is alert and oriented x3 speech rate and content are appropriate. Affect is appropriate The patient shaves her legs but has no open lesions on her legs. She has 2+ dorsalis pedis pulses. Objective Labs Result Diagrams: 07/17/17 19:19 07/17/17 19:19 Labs: Laboratory Results - last 24 hr 07/17/17 07/17/17 07/17/17 19:19 19:19 19:55 WBC 11.3 H RBC 4.96 Hgb 14.2 Hct 41.2 MCV 83.1 MCH 28.6 MCHC 34.5 RDW 13.3 Plt Count 321 Neut % (Auto) 78.1 H Lymph % (Auto) 12.5 L Harmon % (Auto) 8.4 Eos % (Auto) 0.5 L Baso % (Auto) 0.5 Neut # (Auto) 8800 H PT 14.0 H INR 1.3 APTT 34 Sodium 139 Potassium 3.3 L Chloride 97.0 L Carbon Dioxide 27.0 BUN 12.0 Creatinine 0.70 Estimated GFR > 60.0 BUN/Creatinine Ratio 17.1 Glucose 125 H Calcium 9.3 Total Bilirubin 0.7 AST 30 ALT 68 H Alkaline Phosphatase 123 Total Protein 8.1 Albumin 4.3 Globulin 3.8 Albumin/Globulin Ratio 1.1 Lipase 51 Urine RBC Urine WBC Ur Squamous Epith Cells Urine Bacteria Urine Mucus Ur Culture Indicated? Micro UA Comment 07/17/17 19:59 WBC RBC Hgb Hct MCV MCH MCHC RDW Plt Count Neut % (Auto) Lymph % (Auto) Harmon % (Auto) Eos % (Auto) Baso % (Auto) Neut # (Auto) PT INR APTT Sodium Potassium Chloride Carbon Dioxide BUN Creatinine Estimated GFR BUN/Creatinine Ratio Glucose Calcium Total Bilirubin AST ALT Alkaline Phosphatase Total Protein Albumin Globulin Albumin/Globulin Ratio Lipase Urine RBC 5-10/hpf H Urine WBC 1-5/hpf Ur Squamous Epith Cells 0-1 /hpf Urine Bacteria Few (2-10) H Urine Mucus 2+ H Ur Culture Indicated? Not Reportable Micro UA Comment Not Reportable Assessment & Plan Plan: Plan: Patient with a markedly dilated gallbladder containing large stones suggestive of hydrops. There is compression on the 2nd part of the duodenum due to the size of the gallbladder. There may be some thickening of the gallbladder wall. The patient is otherwise healthy but does have a history of a DVT related to a surgical misadventure. She is not anticoagulated but normally is on aspirin daily. I have discussed removal of her gallbladder with her. We will attempt to do this laparoscopically that there is possibility may have to open. Risks of bleeding, infection, hernia near the umbilical incision, injury to internal organs or ducts that would require major operation, bile leakage were all discussed with her. She understands that she could possibly need an ERCP did venting under findings. I am not sure she is going to go home tomorrow or have to stay another night. I discussed everything with her and all questions were answered. She wishes to proceed. Begin DVT prophylaxis tonight. Her potassium is low. We will replace it.
[2017-07-17] MEDS: HYDROMORPHONE 0.5 MG INJ IV ×2 (22:44)
[2017-07-17 23:09] VITALS: BP 128/78; PULSE 103; RESP 15; O2SAT 98
[2017-07-17 23:43] VITALS: BP 120/60; PULSE 60; RESP 16; TEMP 36.2; O2SAT 94
[2017-07-17 23:54] VITALS: BMI 37.5
[2017-07-18] VITALS (26 sets, daily range): BP systolic 100–147; BP diastolic 54–85; PULSE 72–110; RESP 13–17; TEMP 36.3–37.1; O2SAT 93–100
--- NOTE | 2017-07-18 | PATH_ITS ---
[facility] Accession Number: [id number] . 01 Material submitted: . GALLBLADDER . 02 Diagnosis: Gallbladder, Laparoscopic Cholecystectomy: Acute and chronic cholecystitis, cholesterolosis, and cholelithiasis. The cystic duct is partially obstructed at gross examination. One fibroinflammatory nodule (0.7 cm) near the cystic duct. MRV/07/23/2017 . 02 Electronically signed: . Cristela Rivera MD, Pathologist NPI- [id number] . 01 Gross description: . Received in formalin, labeled 1. Gallbladder, is an opened gallbladder (length-11.5 cm, diameter-3.6 cm) with montalvo-lopez smooth shiny focally ulcerated serosa and a semi-obstructed cystic duct. A possible lymph node (0.7 x 0.5 x 0.3 cm) is identified. The lumen contains clear colorless gelatinous material with gritty friable calculi (2.5 x 1.2 x 0.3 cm in aggregate) and two yellow smooth hard calculi (4.5 x 2.2 x 2.0 cm and 2.3 x 1.7 x 1.2 cm) with gay crystalline cut surfaces. The mucosa is pale lopez smooth and flat. The wall is 0.1 cm thick. No nodules, masses or lesions are identified. Section code: (A1) cystic duct resection margin and two serial sections from the body; (A2) two longitudinal sections from the fundus; (A3) one intact lymph node. ([id number]) /MRV . 02 Pathologist provided ICD-10: K80.60 . 02 CPT . 247764 Performed at: [address] [id number] MD Justin Kumari MD Phone: [phone] Performed at: 02 [facility] [address] [place] [id number] MD Chilo Guillaume MD Phone: [phone]
--- NOTE | 2017-07-18 | DI.RAD.S_ITS ---
PROCEDURE: XR CHOLANGIOGRAM OPERATIVE INDICATIONS: LAP JEUSS COMPARISON: None. FINDINGS: Biliary ducts: The surgeon injected contrast into the biliary ducts after cannulation of the cystic duct stump. Visualized extrahepatic bile ducts are normal in caliber, without strictures. Mild prominence visualized intrahepatic bile ducts. No intraluminal filling defects to suggest retained ductal stones or sludge. No evidence for iatrogenic ductal injury. Duodenum: Contrast flows promptly through the sphincter of Oddi into the duodenum, which appears normal in caliber. IMPRESSION: Contrast opacifies the external hepatic bile duct which is patent. No filling defects identified to suggest extrahepatic bile duct choledocholithiasis. Dictated by: Brad Perea M.D. on 07/18/2017 at 12:19 Approved by: Brad Perea M.D. on 07/18/2017 at 12:21
[2017-07-18] MEDS: DEXTROSE 5% IV (00:44)
[2017-07-18] MEDS: KCL IV (00:44)
[2017-07-18] MEDS: [UNRECOGNIZED DRUG - OTHER] IV (00:44)
[2017-07-18] MEDS: ENOXAPARIN 40 MG/0.4 ML SYRINGE SUBCUT (00:44)
[2017-07-18] MEDS: CLINDAMYCIN 900 MG/50 ML PIGGYBACK 50 MG IV ×2 (00:45→10:17)
[2017-07-18] MEDS: levoFLOXacin 500 MG/100 ML PIGGYBACK 100 MG IV (01:54)
[2017-07-18] MEDS: HYDROMORPHONE 1 MG INJ IV (03:30)
--- NOTE | 2017-07-18 10:11 | PM.PREOP ---
Pre-operative Note Interval Note Pre-op Check: History & Physical Reviewed and Exam Performed H&P completed within 30 days and has changed as indicated here:: None
[2017-07-18] MEDS: LACTATED RINGERS 1,000 ML 42 ML IV ×2 (10:15→12:25)
--- NOTE | 2017-07-18 10:58 | SUR.OPER ---
Supine on padded OR bed, head on pillow, safety belt at thigh, left arm padded and tucked at side. Right arm secured on padded arm oard <90 degrees abduction. Legs uncrossed. Padded footboard in place. Tape over blanket to secure lower legs.
[2017-07-18] MEDS: IOPAMIDOL 50 ML VIAL INJ (11:43)
[2017-07-18] MEDS: BUPIVACAINE 0.5% (PF) 30 ML VIAL INJ (11:44)
[2017-07-18] MEDS: fentaNYL 100 MCG/2 ML INJ 50 MCG IV ×3 (13:23→13:39)
[2017-07-18] MEDS: LORazepam 2 MG/ML SYRINGE 0.25 MG IV (13:36)
[2017-07-18] MEDS: HYDROMORPHONE 0.5 MG INJ 0.25 MG IV ×2 (13:49→13:55)
--- NOTE | 2017-07-18 13:50 | P.OP_ITS ---
Operative Date/Time/Diagnoses - Date of procedure: 07/18/17 Time of procedure: 13:41 Pre-op diagnosis: Cholelithiasis acute cholecystitis. Post-op diagnosis: same Procedure & Clinicians Procedure: Laparoscopic cholecystectomy with intraoperative cholangiogram Same procedure as scheduled: Yes Indications: Severe right upper quadrant pain Surgeon: Bradley Lehman Anesthesia Type: General Operative Notes Findings: Thickened gallbladder. A large number of stones some of which were quite large. Stones in the cystic duct. Difficult to perform a cholangiogram due to lack of the ability to inject rapidly. As best I could tell there were no stones or filling defects in the common bile duct. Closure Type: primary Specimen(s): other (Gallbladder and contents) Implants & Drains: Brian-Weber drain 10 [place] Estimated Blood Loss (mL): 75 Procedure in detail: The patient was placed supine on the operating room table and underwent general endotracheal anesthesia. There prepped and draped in the usual fashion. Local anesthetic was infiltrated beneath the umbilicus and an incision made in the infraumbilical fold. It was carried down to the level of the peritoneum which was opened under direct vision. Stay sutures of 0 Polysorb were placed in the fascia. An Aj cannula was inserted and the abdomen was insufflated. The patient was repositioned and local anesthetic was infiltrated again beneath the right costal margin and 3 small 5 mm ports were inserted. The gallbladder was identified and grasped and elevated. Adherent omentum to the gallbladder was taken down bluntly and with cautery. The end of the gallbladder was identified. Dissection was begun here. An arterial structures singular nature going directly the gallbladder was from surrounding structures. Four clips were placed across it was divided leaving 3 the patient. A ductal structure singular nature going directly the gallbladder was identified. It appeared to be fairly dilated. I placed a clip at its junction with the gallbladder and a small billy was intentionally made in the duct. There was back flow of bile. I gently compress the duct near the common duct and milked it up toward the opening and multiple stones came out. I repeatedly did this until only bile was obtained. There were numerous stones in the cystic duct. A cholangiocatheter was inserted and a cholangiogram was attempted. This was quite difficult. I had very slow flow into the ductal system but ultimately I was able to visualize the whole thing. There is rather narrowed taper into the duodenum distally. I could identify no filling defects. The cystic duct was long and appeared to have multiple valves within it. I did not see any filling defects seen it anymore either. It did seem to have a narrow flow however into the common bile duct. The cholangiocatheter was removed and I am again applied pressure to the cystic duct near the common duct milked things back to make sure there were no other stones. Three clips were placed on the duct and was divided leaving those 3 in the patient. The gallbladder was then slowly dissected from its bed in the liver. There was spillage of stones due to the very marked inflammation of the gallbladder was difficult to identify plane between gallbladder and liver. Ultimately I was able to detach the gallbladder and place it in a bag and removed it without further spillage. The right upper quadrant was irrigated and suctioned free of fluid and stones. Meticulous hemostasis was achieved. I vigorously and thoroughly searched for any stones that remained. No further stones could be found at completion. A 10 mm Brian -Weber drain was placed in the gallbladder bed and brought out through the lateral-most port site. It was secured with 3 0 nylon suture. The wounds were all irrigated after removing the ports. Stay sutures at the umbilicus were tied. A 2 0 Maxon was placed in the fascia between the other 2 sutures and tied. The wounds were irrigated and 4 0 Vicryl subcuticular stitches were used to close the skin in all the remaining areas. Mastisol Steri-Strips and dressings were applied and the patient was awakened, extubated and taken to recovery room good condition. There were no apparent complications. Complications: none Condition: stable Disposition: PACU Plan for aftercare: Admission.
--- NOTE | 2017-07-18 15:58 | CM.DANOTE ---
DCP: assessment: Documentation reviewed and DCP template completed with limited info available. Pt is a 51 dee old female who [place] [facility] [place]. Payer: shows pvt at this time....will watch for further information from the [facility]. Admitted to care of surgeon: Dr. Lehman. Surgery: today: Lap Hansa/IOC P: see tomorrow to continue the assessment process. contact [facility] for further info on insurance/financial options.
[2017-07-18] MEDS: DEXTROSE 5%-0.45% NS 1,000 ML 100 ML IV (16:17)
[2017-07-18] MEDS: HYDROCODONE/ACET 5/325 TABLET 2 TAB PO (18:50)
--- NOTE | 2017-07-18 20:30 | RT ---
PT IS A NON-SMOKER. SC D/C'D.
[2017-07-18] MEDS: HYDROCODONE/ACET 5/325 TABLET 1 TAB PO (22:55)
[2017-07-19] VITALS (7 sets, daily range): BP systolic 136–148; BP diastolic 72–82; PULSE 105–116; RESP 12–18; TEMP 36.6–37.7; O2SAT 95–98
[2017-07-19] MEDS: DEXTROSE 5%-0.45% NS 1,000 ML 100 ML IV (02:31)
[2017-07-19] MEDS: HYDROCODONE/ACET 5/325 TABLET 1 TAB PO ×2 (04:26→10:41)
--- NOTE | 2017-07-19 04:56 | PC.NURSE ---
Rosanne has been up and ambulating three times this shift, no assistance needed, manages safely with stand by in room. She was irritated about her infusion site earlier in the shift, concerned that it was restarted i a new site and removed fro arm ( antecubital). The site is positional, causing pump to alarm frequently in past shift. I retaped and she was emphatic that she did not want any more IVs. Reassured, extra time given, she was allowed to verbalize: wants to go home Thursday without the SUSAN drain. She is consuming liquids, tolerating solids, has good control over pain and her SUSAN is draining minimal amount serosanguinous drainage Over the last 6 hours, she has been less anxious, more optimistic about discharge and eager to comply/learn and transition home.
--- NOTE | 2017-07-19 08:05 | PC.NURSE ---
Addendum entered by Anna Mata R.N. 07/19/17 13:22: Discharge: IV dc'd intact. Reviewed d/c instructions thoroughly, including home med list. Only new med is Vicodin which she was given script for. Counseled to drink plenty of fluids , and to consider OTC stool softener, to help avoid narcotic related constipation. Activity as tolerated (and as instructed per MD), no lifting more than 10 lbs until cleared by MD. Instructed that it's ok to remove band-aid dressings and shower tomorrow if she wants. Let steri-strips fall off on their own and to keep clean and dry between showers. Instructed to keep SUSAN site covered with dressing until healed. Instructed to call Dr Lehman's office tomorrow to schedule a follow up appt within 7-10 days. Instructed to call MD with any s/sx infection (or with any other symptoms listed in education d/c info). All belongings sent with patient at discharge. Patient verbalized understanding of d/c instructions and stated no further questions. Assisted into wheelchair and taken out to private vehicle by nursing staff. Original Note: Addendum entered by Anna Mata R.N. 07/19/17 12:23: New SUSAN dressing checked for any bleed-through- dressing is C/D/I. Patient working on lunch. Plan is to d/c home this afternoon, [place] for the [address] to [place]. Original Note: Addendum entered by Anna Mata R.N. 07/19/17 11:33: SUSAN site: Dr Solo was up approx 1115 and removed SUSAN drain. He reported there was some bleeding and that he applied pressure dressing which he wanted changed after a few minutes. This greeting card writer removed his dressing, and it appeared that the bleeding has basically stopped. Dressed with folded 4X4 and coversite dressing. Patient denies other needs at this time. Call light in reach. Original Note: Addendum entered by Anna Mata R.N. 07/19/17 10:00: Lab draw: Patient refused lab draw initially because she didn't know anything about it and was upset about that. She and the log deckman had what seems like a combination of miscommunication and personality conflict. This greeting card writer explained that MD Lehman ordered the labs, likely so he has the results available by the time he makes his rounds. Once made aware of this she was agreeable to having them drawn. This greeting card writer was in room to witness lab draw, which patient tolerated well. This greeting card writer alerted wood patternmaker apprentice Adrian to this situation. Original Note: Shift summary: Awake and alert, oriented X3. Reports feeling really hungry this morning and is looking forward to breakfast. Denies N/V. BT+, hypoactive. Abdomen soft. Flatus+. 2 lap sites on abd covered with band-aids which are C/D/I. SUSAN site secured and with scant shadow drainage on dressing around insertion site. SUSAN compressed and with sero-sanguinous drainage. Lungs CTA, HRR. Encouraged coughing and deep breathing, talked about splinting abdomen. SCD's placed to BLE's. IVF per orders, site in L hand WNL. Indep in room, steady on feet. Able to make needs known and calls appropriately. States she is hoping to d/c home today. In bed working on breakfast, call light in reach.
--- NOTE | 2017-07-19 08:53 | CM.DPC ---
DCP: assessment: continued: Met this morning with pt as planned. She is found sitting up in bed, eating breakfast. She says she is unclear if she will be able to d/c home today or tomorrow, says she will follow what Dr. Lehman recommends. Her spouse spent the night in room and will take her home if the d/c is today. Her mother will pick her up tomorrow if she says another night. Pt confirms she has no insurance but says we use a HSA (healthcare savings account) and that works well for us. She has not seen anyone from the [employer] for discussion of financial payment options but says she will follow up with the billing department during the week. Will alert [facility] via outlook mail now. Unclear if anyone from that dept is working today (Thursday). P: home when stable for same, clinic followup.
[2017-07-19 09:58] LABS: Add Manual Diff / Slide Review NO; Basophils Percent Auto 0.5 % (0-2); Hemoglobin 12.3 g/dL (12.0-16.0); Mean Corpuscular HGB Conc 34.1 % (30-36); Mean Corpuscular Hemoglobin 28.7 PG (26-34); Mean Corpuscular Volume 84.1 fL (80-100); Monocytes Percent Auto 7.3 % (3-14); Neutrophils Absolute Auto 10900 /uL (3000-5900); Neutrophils Percent Auto 82.2 % (50-75); Platelet Count 308 X10^3/uL (150-400); Red Blood Cell Count 4.28 X10^6/uL (4.0-5.2); Red Cell Distribution Width 13.6 % (11.6-14.8); White Blood Cell Count 13.3 X10^3/uL (4.5-11.0)
[2017-07-19 10:23] LABS: Alanine Aminotransferase 162 IU/L (9-52); Albumin 3.6 g/dL (3.5-5.0); Albumin Globulin Ratio 1.1 (1.0-2.8); Alkaline Phosphatase 123 U/L (38-126); Aspartate Aminotransferase 91 IU/L (14-36); BUN Creatinine Ratio 8.3 (6-22); Bilirubin Total 0.3 mg/dL (0.2-1.3); Calcium 8.9 mg/dL (8.4-10.2); Estimated Glomerular Filt Rate > 60.0 mL/min (>60); Globulin 3.2 g/dL (1.7-4.1); Glucose 139 mg/dL (70-100); HEMOLYSIS < 15 (0-50); Potassium 3.6 mmol/L (3.4-5.1); Sodium 145 mmol/L (137-145); Total Protein 6.8 g/dL (6.3-8.2)
--- NOTE | 2017-07-19 12:28 | PM.DS.1 ---
History of Present Illness Chief complaint: ACUTE SOMETHING WITH GALLBLADDER Narrative: KEKE JANG is a 51 year old female The patient is a woman with several day history of right upper quadrant pain. It began unrelenting. She has had intermittent pain for the last several months. CT scan was performed that showed a large dilated gallbladder with a stone obstructing the outlet and possible enlargement of the common bile duct. The patient was admitted, taken to the operating room where she underwent a laparoscopic cholecystectomy and intraoperative cholangiogram. She was found to have stones in her cystic duct which were milked out of the cystic duct. A cholangiogram was performed intraoperatively that showed no filling defects. Free flow into the duodenum noted. Her postoperative course was unremarkable. She had a drain placed which was removed prior to discharge. Her bilirubin postprocedure was normal. She did have mild elevation of her AST. She was discharged tolerating diet. Discharge Providers Date of admission: 07/18/17 10:43 Discharge provider: Bradley Lehman MD Summary Time Spent with Patient Total time spent providing and/or coordinating discharge services: 30 min Exam Vital Signs (past 8 hours): Vital Signs - 8 hr 07/19/17 04:47 07/19/17 04:50 07/19/17 07:36 Temperature 97.8 F 99.1 F Pulse Rate 105 H Respiratory Rate 17 Blood Pressure 148/78 H Pulse Oximetry 97 98 07/19/17 08:00 07/19/17 11:00 Temperature 99.9 F H Pulse Rate 110 H Respiratory Rate 17 Blood Pressure 145/82 H Pulse Oximetry 97 97 Pulse Oximetry 97 Oxygen Delivery Method Room Air Oxygen Flow Rate 0 Narrative Exam Narrative: The patient has clear loads. Her abdomen is protuberant soft nontender without mass. Drain was draining serosanguineous fluid without any hint of bile in it. It was removed. Objective Labs Result Diagrams: 07/19/17 09:50 07/19/17 09:50 Labs: Laboratory Results - last 24 hr 07/19/17 07/19/17 09:50 09:50 WBC 13.3 H RBC 4.28 Hgb 12.3 Hct 36.0 MCV 84.1 MCH 28.7 MCHC 34.1 RDW 13.6 Plt Count 308 Neut % (Auto) 82.2 H Lymph % (Auto) 10.0 L Wallace % (Auto) 7.3 Eos % (Auto) 0.0 L Baso % (Auto) 0.5 Neut # (Auto) 79394 H Sodium 145 Potassium 3.6 Chloride 103.0 Carbon Dioxide 27.0 BUN 5.0 L Creatinine 0.60 Estimated GFR > 60.0 BUN/Creatinine Ratio 8.3 Glucose 139 H Calcium 8.9 Total Bilirubin 0.3 AST 91 H ALT 162 H Alkaline Phosphatase 123 Total Protein 6.8 Albumin 3.6 Globulin 3.2 Albumin/Globulin Ratio 1.1 Discharge Plan Discharge Plan Patient Disposition: Home, Self-Care Discharge comment: Discharge to home. Follow-up to be arranged by patient. Provider Discharge Instructions Diet: Diet as Tolerated Activity: Do not lift anything over 10 lbs until your doctor says it's safe Wound Care Dressing: May remove dressing in 48 hours and shower Discharge Data Attending Provider: Bradley Lehman Admit Date/Time: 07/18/17 10:43
--- NOTE | 2017-07-19 12:37 | P.DS_ITS ---
History of Present Illness Chief complaint: ACUTE SOMETHING WITH GALLBLADDER Narrative: KEKE JANG is a 51 year old female The patient is a woman with several day history of right upper quadrant pain. It began unrelenting. She has had intermittent pain for the last several months. CT scan was performed that showed a large dilated gallbladder with a stone obstructing the outlet and possible enlargement of the common bile duct. The patient was admitted, taken to the operating room where she underwent a laparoscopic cholecystectomy and intraoperative cholangiogram. She was found to have stones in her cystic duct which were milked out of the cystic duct. A cholangiogram was performed intraoperatively that showed no filling defects. Free flow into the duodenum noted. Her postoperative course was unremarkable. She had a drain placed which was removed prior to discharge. Her bilirubin postprocedure was normal. She did have mild elevation of her AST. She was discharged tolerating diet. Discharge Providers Date of admission: 07/18/17 10:43 Discharge provider: Bradley Lehman MD Summary Time Spent with Patient Total time spent providing and/or coordinating discharge services: 30 min Exam Vital Signs (past 8 hours): Vital Signs - 8 hr 3 07/19/17 04:47 07/19/17 04:50 07/19/17 07:36 Temperature 97.8 F 99.1 F Pulse Rate 105 H Respiratory Rate 17 Blood Pressure 148/78 H Pulse Oximetry 97 98 3 07/19/17 08:00 07/19/17 11:00 Temperature 99.9 F H Pulse Rate 110 H Respiratory Rate 17 Blood Pressure 145/82 H Pulse Oximetry 97 97 Pulse Oximetry 97 Oxygen Delivery Method Room Air Oxygen Flow Rate 0 Narrative Exam Narrative: The patient has clear loads. Her abdomen is protuberant soft nontender without mass. Drain was draining serosanguineous fluid without any hint of bile in it. It was removed. Objective Labs Result Diagrams: 07/19/17 09:50 07/19/17 09:50 Labs: Laboratory Results - last 24 hr 07/19/17 07/19/17 09:50 09:50 WBC 13.3 H RBC 4.28 Hgb 12.3 Hct 36.0 MCV 84.1 MCH 28.7 MCHC 34.1 RDW 13.6 Plt Count 308 Neut % (Auto) 82.2 H Lymph % (Auto) 10.0 L Becker % (Auto) 7.3 Eos % (Auto) 0.0 L Baso % (Auto) 0.5 Neut # (Auto) 65242 H Sodium 145 Potassium 3.6 Chloride 103.0 Carbon Dioxide 27.0 BUN 5.0 L Creatinine 0.60 Estimated GFR > 60.0 BUN/Creatinine Ratio 8.3 Glucose 139 H Calcium 8.9 Total Bilirubin 0.3 AST 91 H ALT 162 H Alkaline Phosphatase 123 Total Protein 6.8 Albumin 3.6 Globulin 3.2 Albumin/Globulin Ratio 1.1 Discharge Plan Discharge Plan Patient Disposition: Home, Self-Care Discharge comment: Discharge to home. Follow-up to be arranged by patient. Provider Discharge Instructions Diet: Diet as Tolerated Activity: Do not lift anything over 10 lbs until your doctor says it's safe Wound Care Dressing: May remove dressing in 48 hours and shower Discharge Data Attending Provider: Bradley Lehman Admit Date/Time: 07/18/17 10:43
== END 2017-07-19 13:25 | disposition home or self-care (01) | DRG 419 ==
LOC: ED 22:22 → AC 22:55
PROVIDERS: Admitting Provider Specialist; Emergency Provider Internal Medicine; Visit Provider Specialist
PROC: 0FT44ZZ Resection of Gallbladder, Percutaneous Endoscopic Approach (ICD-10-PCS; CPT 47562; principal; 2017-07-18 09:30)
DX: K80.00 Calculus of gallbladder with acute cholecystitis without obstruction (principal)
CPT/HCPCS: 36415; 36591; 74177; 74300; 80053; 81003; 81015; 83690; 85025; 85610; 85730; 99283; G0378; J1100; J1170; J1650; J1885; J1956; J2060; J2405; J2704; J3010; Q9967